=== PATIENT | female | born 2000 | race Caucasian/White ===

== ENCOUNTER 2022-07-26 19:18 | Emergency (ER) | payer SELFPAY ==
[~2022-07-26] VITALS: Ht 165.1 cm; Wt 85.3 kg
[2022-07-26 20:04] VITALS: BP 110/70
[2022-07-26] MEDS ORDERED: ACETAMINOPHEN EXTRA STRENGTH 500 MG TAB ONE (20:07)
[2022-07-26] MEDS ORDERED: ACETAMINOPHEN EXTRA STRENGTH 500 MG TAB PO ONE (20:10)
--- NOTE | 2022-07-26 20:22 | NUR ---
Assumed care of pt and pt is in bed with c/o flu like symptoms. Pt states since Sunday she has been having body aches, sore throat, and nausea. A&Ox4. VSS. Skin intact/. No cp and no sob. Denies vomiting but states she does have nausea. Bed in lowest position.
--- NOTE | 2022-07-26 20:31 | NUR ---
Covid and flu swab sent to lab.
--- NOTE | 2022-07-26 21:00 | NUR ---
Dr. Sheffield notified that pt is flu positive.
--- NOTE | 2022-07-26 21:01 | NUR ---
Dr. Sheffield at bedside ecamining pt.
[2022-07-26] MEDS ORDERED: KETOROLAC 60 MG/2 ML VIAL IM ONE (21:15)
[2022-07-26] MEDS ORDERED: IBUP-2213 PO (21:25)
[2022-07-26] MEDS ORDERED: CIPR500T4 PO (21:25)
[2022-07-26] MEDS ORDERED: ONDA8TAB87 PO (21:25)
[2022-07-26] MEDS ORDERED: TAM75 PO (21:25)
--- NOTE | 2022-07-26 21:33 | NUR ---
Note amie in EDM - 07/26/22 at 2134 by [id number] Patient discharged with v/s stable. Written and verbal after care instructions given and explained to parent/guardian. Parent/Guardian verbalized understanding. Ambulatorysteady gait. All questions addressed prior to discharge. Advised to follow up with PMD.
[2022-07-26 21:34] VITALS: BP 115/78
--- NOTE | 2022-07-26 21:34 | NUR ---
Patient discharged with v/s stable. Written and verbal after care instructions given and explained. Patient verbalized understanding. Ambulatory with steady gait. All questions addressed prior to discharge. Advised to follow up with PMD.
== END 2022-07-26 21:34 | disposition home or self-care (01) ==
LOC: MED 19:18
DX: J11.1 Influenza due to unidentified influenza virus with other respiratory manifestations (principal); Z20.822 Contact with and (suspected) exposure to COVID-19; N12 Tubulo-interstitial nephritis, not specified as acute or chronic
CPT/HCPCS: 81002; 81025; 87426; 87804; 96372; 99283; J1885